=== PATIENT | female | born 1965 | race American Indian/Alaskan Native ===

== ENCOUNTER 2021-11-02 07:38 | Day surgery (SDC) | payer OTHER ==
[2021-11-02] MEDS ORDERED: HEPARIN/NS 5000 UNIT/500ML 1,000 ML IR ONE (08:02)
[2021-11-02] MEDS: HEPARIN 10,000 UNITS/10 ML VIAL ONE ×2 (08:14→09:51)
[2021-11-02] MEDS: NITROGLYCERIN SYRINGE 3 ML ONE ×2 (08:14→09:51)
[2021-11-02] MEDS: VERAPAMIL 5 MG/2 ML INJ ONE ×2 (08:14→09:51)
[2021-11-02] MEDS: LIDOCAINE (2%) 20 MG/1 ML VIAL 50 ML MDV INFILTRATI ONE ×2 (08:14→09:48)
[2021-11-02] MEDS: fentaNYL 100 MCG/2 ML INJ ONE ×2 (08:28→09:47)
[2021-11-02] MEDS: MIDAZOLAM 2 MG/2 ML INJ ONE ×2 (08:28→09:47)
[2021-11-02 08:58] LABS: Blood Urea Nitrogen 9 mg/dL (7-17); Calcium 9.4 mg/dL (8.4-10.2); Hemolysis Index 65
[2021-11-02 09:00] LABS: Basophils % (Auto) 0.6 % (0.0-1.8); Eosinophils # (Auto) 0.1 K/mm3 (0.0-0.4); Eosinophils % (Auto) 0.9 % (0.0-4.3); Hematocrit 39.5 % (30.3-42.9); Hemoglobin 12.8 gm/dl (10.1-14.3); Lymphocytes # (Auto) 2.7 K/mm3 (1.2-5.4); Lymphocytes % (Auto) 42.7 % (13.4-35.0); Mean Corpuscular HGB Conc 32 % (30-34); Mean Corpuscular Volume 90 fl (79-97); Monocytes # (Auto) 0.3 K/mm3 (0.0-0.8); Monocytes % (Auto) 5.1 % (0.0-7.3); Platelet Count 179 K/mm3 (140-440); Red Blood Count 4.41 M/mm3 (3.65-5.03); Red Cell Distribution Width 12.5 % (13.2-15.2)
[2021-11-02] MEDS ORDERED: SODIUM CHLORIDE 0.9% 500 ML 500 ML IV SCH (09:00)
[2021-11-02] MEDS ORDERED: ASPIRIN EC 325 MG TAB PO SCH (09:00)
[2021-11-02 09:19] LABS: BUN/Creatinine Ratio 13
--- NOTE | 2021-11-02 10:22 | Cardiac Catherization Report ---
DATE OF PROCEDURE: 11/02/2021 REFERRING PHYSICIAN: Dr. Arsalan Kimball. INDICATIONS FOR PROCEDURE: The patient is a pleasant 56-year-old female with multiple risk factors, recurrent chest pain, abnormal stress test, referred for left heart catheterization. Risks, benefits and alternatives discussed at length prior to obtaining informed consent. PROCEDURE IN DETAIL: The patient was brought to director of cath lab in a postabsorptive state, prepped and draped in sterile fashion. David's test in right hand is normal. Then, 2 mL of 2% lidocaine used to anesthetize the right wrist. A standard 6-Bel[place]ian hydrophilic sheath was used to cannulate the right radial artery via modified Seldinger technique. All exchanges performed to exchange a J-tip guidewire. JL3.5 catheter was used to engage the left main. No dampening or ventricularization. Cineangiography performed in all projections. JR4 catheter used to cross the aortic valve under fluoroscopic guidance. Left ventriculography performed in the 30-degree TRAYLOR and 30-degree FINNISH projections via hand injections, catheter flushed. Manual pullback performed with continuous pressure monitoring. Catheter used to engage the right coronary. No dampening or ventricularization. Cineangiography performed in all projections. Next, catheter removed from the body of wire, sheath removed. Manual pressure used to achieve hemostasis. I directly supervised the administration of fentanyl and Versed for moderate sedation from 9:47 a.m. to 10:10 a.m. No immediate complications. DATA: The patient remained in normal sinus rhythm throughout the procedure. Aortic pressure is 140/70, LV pressure is 140, LVEDP of 10 mmHg. Left ventriculography reveals normal systolic performance, estimated ejection fraction 55%-60%. No evidence of aortic stenosis. CORONARY ANATOMY: Short left main. Right dominant system. No significant disease in the left main. LAD is a moderate-sized vessel, courses anterior interventricular groove. No significant disease. Left circumflex is a moderate-sized vessel, courses AV groove. No significant disease. Right coronary artery is a moderate sized vessel, courses AV groove, distally bifurcates in the posterior descending and posterolateral branches. No significant disease noted. CONCLUSIONS: * No angiographic evidence of significant epicardial coronary artery disease in this right dominant system. * Normal left ventricular systolic performance, estimated ejection fraction 55%-60%. * No evidence of aortic stenosis. * Normal left ventricular end-diastolic pressure. The patient is clinically stable, chest pain free. Results of procedure will be discussed with her , Aleksander, over the telephone. She is clinically stable. He will come to pick her up. Follow up with Dr. Kimball in the office. Standard radial care. TID: [id number] RECEIPT: [id number] YOUSIF/KRYSTAL
--- NOTE | 2021-11-02 10:34 | Electrocardiograph Report ---
[facility] Test Date: 2021-11-02 Test Time: 08:53:55 Pat Name: SURYA JEONG Department: Room: Gender: F Director Of Global Marketing: VISHAL : 1965 Requested By: ISSA SILVESTRE Order Number: [id number] Reading MD: Issa Silvestre Measurements Intervals [place] Rate: 80 P: 61 MN: 145 QRS: 55 QRSD: 99 T: 52 QT: 378 QTc: 436 Interpretive Statements Sinus rhythm No previous ECG available for comparison Electronically Signed On 11-02-2021 10:34:16 EDT by Issa Silvestre
[2021-11-02 11:08] LABS: INR 0.85 (0.87-1.13)
--- NOTE | 2021-11-02 11:43 | Short Stay Summary ---
Short Stay Documentation Date of service: 11/02/21 Narrative H&P: See HPI - History H&P: obtained from office - Allergies and Medications Current Medications: Allergies No Known Allergies Allergy (Verified 06/16/13 07:38) Home Medications Medication Instructions Recorded Confirmed Last Taken Type AtorvaSTATin [Lipitor] 10 mg PO QAM 11/02/21 11/02/21 11/01/21 History Famotidine [Pepcid] 40 mg PO QHS 11/02/21 11/02/21 11/01/21 History Gabapentin 100 mg PO DAILY 11/02/21 11/02/21 11/01/21 History Linaclotide [Linzess] 290 mcg PO DAILY 11/02/21 11/02/21 11/01/21 History Magnesium Hydroxide [Garcia' 311 mg PO DAILY 11/02/21 11/02/21 11/01/21 History Milk of Magnesia] Saccharomyces Boulardii [Daily 250 mg PO DAILY 11/02/21 11/02/21 11/01/21 History Probiotic] Sennosides [Ex-Lax Maximum 25 mg PO DAILY 11/02/21 11/02/21 11/01/21 History Strength] Valsartan [Diovan] 80 mg PO DAILY 11/02/21 11/02/21 11/01/21 History Active Medications Aspirin (Aspirin Ec 325 Mg Tab) 325 mg PO ONCE@0900 QUINCY Stop: 11/02/21 18:00 Last Admin: 11/02/21 09:00 Dose: 325 mg Sodium Chloride (Nacl 0.9% 500 Ml) 500 mls @ 50 mls/hr IV DIRECT QUINCY Stop: 11/02/21 18:59 Last Admin: 11/02/21 09:01 Dose: 50 mls/hr - Physical exam Integumentary: other (Right radial cath site intact no bleeding or hematoma noted) - Brief post op/procedure progress note Date of procedure: 11/02/21 Pre-op diagnosis: Chest pain Post-op diagnosis: other (Normal coronary arteries) Anesthesia: MAC Estimated blood loss: none - Disposition Condition at discharge: Stable Disposition: 01 HOME / SELF CARE / HOMELESS - Discharge Diagnoses (1) Normal coronary arteries Status: Acute Short Stay Discharge Plan Activity: no restrictions Diet: low fat, low cholesterol, low salt Wound: per your surgeon's advice Follow up with: MARCO MARTIN MD [Staff Physician] - 7 Days (Patient should follow-up with Dr Rupert Martin on 11/16/2021 at 1030 in our [place] location. [phone]) Forms: [facility] PCI D/C Instructions
[2021-11-02 12:36] VITALS: BP 113/73
== END 2021-11-02 13:07 | disposition home or self-care (01) ==
LOC: CATHLABREC 07:38
PROVIDERS: ATTEND Internal Medicine
DX: R07.89 Other chest pain (principal); R94.39 Abnormal result of other cardiovascular function study; E78.00 Pure hypercholesterolemia, unspecified; I10 Essential (primary) hypertension; K21.9 Gastro-esophageal reflux disease without esophagitis; M19.90 Unspecified osteoarthritis, unspecified site; F41.9 Anxiety disorder, unspecified; Z90.710 Acquired absence of both cervix and uterus; Z79.899 Other long term (current) drug therapy; Z98.890 Other specified postprocedural states; Z98.49 Cataract extraction status, unspecified eye; Z80.8 Family history of malignant neoplasm of other organs or systems
CPT/HCPCS: 36415; 80048; 82962; 85025; 85610; 93005; 93458; 99156; 99157; C1894; J1644; J1815; J2250; J3010; J3490; J7040; Q9967